=== PATIENT | female | born 1985 | race Asian ===

== ENCOUNTER 2021-01-16 22:43 | Emergency (ER) | payer MEDICAID ==
[~2021-01-16] VITALS: Ht 160 cm; Wt 92.0 kg
[~2021-01-16 22:43] MED LIST: FERR325T18 PO; IBUP-1223 PO; OXYC1TAB14 PO
[2021-01-16 22:46] VITALS: BP 115/67
--- NOTE | 2021-01-16 23:33 | NUR ---
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
[2021-01-17] MEDS ORDERED: IBUPROFEN 600 MG TABLET PO ONE
[2021-01-17] MEDS ORDERED: IBUPROFEN 600 MG TABLET ONE (00:16)
== END 2021-01-17 00:23 | disposition home or self-care (01) ==
LOC: ED 23:50
DX: S90.121A Contusion of right lesser toe(s) without damage to nail, initial encounter (principal); E05.90 Thyrotoxicosis, unspecified without thyrotoxic crisis or storm; X58.XXXA Exposure to other specified factors, initial encounter; Y93.89 Activity, other specified; Y92.89 Other specified places as the place of occurrence of the external cause; Y99.8 Other external cause status
CPT/HCPCS: 99283